=== PATIENT | female | born 1990 | race Caucasian/White ===

== ENCOUNTER 2016-09-04 01:05 | Emergency (ER) | payer OTHER ==
[~2016-09-04] VITALS: Ht 162.6 cm; Wt 109.1 kg
[~2016-09-04 01:05] MED LIST: ALBU8.5H2 INHALATION; BECL8.7A6 INHALATION; GABA-500 PO; IBUP-1827 PO
[2016-09-04 01:15] VITALS: BP 119/83; PULSE 79; RESP 16; O2SAT 97
--- NOTE | 2016-09-04 01:21 | ED.REPORT ---
HPI- Female Date of Service Sep 04, 2016 ED Provider: Alka LopezO. A 26 year old female at 9 weeks with a history of ovarian cyst, asthma, GERD, and depression presents to the ED with vaginal bleeding onset 25 minutes prior to arrival. She has soaked through a pad since onset. The patient also reports lower abdominal cramping. The patient denies recent sexual intercourse or other symptoms. Nursing Notes Stated Complaint: 9 WKS BLEEDING Chief Complaint: Female Abdominal Pain Nursing Notes Reviewed: Yes Allergies: Coded Allergies: budesonide (Verified Allergy, Unknown, 06/20/16) Scheduled Albuterol HFA (Proair HFA) 8.5 Gm Hfa.aer.ad 2 PUFFS INHALATION Q4H Beclomethasone Dipropionate (Qvar) 8.7 Gm Aer.w.adap 2 PUFF INHALATION BID Scheduled PRN Gabapentin (Gabapentin) 100 Mg Capsule 100 MG PO PRN . Ibuprofen (Ibuprofen) 600 Mg Tablet 600 MG PO QID PRN PRN For Pain General Time Seen by MD: 01:20 Chief Complaint Vaginal bleeding... (Moderate) Hx Obtained From: Patient Arrived By: Walk-in Sudden in Onset?: Yes Onset Occurred: 16 - 30 minutes ago Symptom Duration: Since onset Location: : Abdomen lower Quality: Cramping Severity: Current: Moderate Severity: Maximum: Moderate Associated with: Reports: Abdominal pain, Denies: Fever, Vomiting : 2 RH Status / Blood Type: Rh Positive Pertinent Negative: Relieved by nothing Recent Healthcare: No recent doctor visit Past Medical History Past Medical History Ovarian Cysts Back pain Reports: Asthma, GERD Reports: Depression, Obesity Past Surgical History Melanoma Left jaw (no other treatment) Sinus surgery Left foot Smoking History Never Smoker Social History Alcohol Use: Denies alcohol use Drug Use: Denies drug use Ambulatory Status Independent Review of Systems Constitutional: Denies: Fever GI: Reports: Abdominal pain (Lower, cramping), Denies: Diarrhea, Vomiting Female: Reports: Vaginal bleeding - abnl (During ) Complete sys rev & neg: except as marked. Respiratory: Denies: Non-productive cough, Shortness of breath Physical Exam Initial Vital Signs Vital Signs (First) Date Time Temp Pulse Resp B/P Pulse Ox O2 Delivery O2 Flow Rate FiO2 09/04/16 01:15 36.4 79 16 119/83 97 Room Air Initial VS: Reviewed Head / Eyes: Atraumatic, Normocephalic ENT: Conjunctiva normal, No scleral icterus Neck: Supple, Full range of motion Respiratory: Breath sounds normal, Clear to auscultation, No respiratory distress Cardiovascular: Regular rate & rhythm, Heart sounds normal Skin: Warm, Dry, No cyanosis Neurologic: Alert, Oriented, Nonfocal Psychiatric: Mood/affect normal, Behavior normal, Normal thought content Female Genitourinary: [employer] Sales [employer] present, Atraumatic, No bleeding, No cervical motion tend, Os closed, No adnexal tenderness Interpretation & Diagnostics Bedside US performed by ED physician at 01:29: Normal intrauterine with heart tones of 150bpm URINE DIPSTICK: 1.015 sp gravity 6 pH Trace Leukocytes Trace Protein Normal Glucose Normal Urobilinogen ~ 250 Angelito/ml Blood Otherwise Negative URINE : Positive Lab Results Interpretation Result Diagram: 09/04/16 0125 Test 09/04/16 01:25 09/04/16 02:00 White Blood Count 14.3th/mm3 (3.8-10.1) Red Blood Count 4.43mil/mm3 (3.90-5.20) Hemoglobin 13.1g/dL (12.0-15.6) Hematocrit 38.9% (35.0-46.0) Mean Corpuscular Volume 87.8fL (81-100) Mean Corpuscular Hemoglobin 29.6pg (27.0-35.0) Mean Corpuscular Hemoglobin Concent 33.7% (32.0-37.0) Red Cell Distribution Width 14.2% (12.3-15.4) Platelet Count 333bil/L (150-400) HCG Beta Subunit [id number]/mL Hold Farley Top Tube Received (Received) Urine Color Yellow (YELLOW) Urine Appearance Clear (CLEAR,HAZY) Urine pH 6.0 (5.0-8.0) Urine Specific [place] 1.020 (1.003-1.035) Urine Protein Negativemg/dL (NEG,TRACE) Urine Glucose (UA) Negativemg/dL (NEGATIVE) Urine Ketones Negativemg/dL (NEGATIVE) Urine Occult Blood Moderate (NEGATIVE) Urine Nitrite Negative (NEGATIVE) Urine Bilirubin Negative (NEGATIVE) Urine Urobilinogen Normalmg/dL (NORMAL) Urine Leukocyte Esterase Trace (NEGATIVE) Urine RBC 11-50/hpf (0-2) Urine WBC 0-5/hpf (0-5) Urine Epithelial Cells Few/hpf (NONE-MOD) Urine Crystals None seen (NONE SEEN) Urine Bacteria Few/hpf (NONE-FEW) Urine Hyaline Casts None/lpf (NONE) Urine Granular Casts None seen (NONE SEEN) Urine Waxy Casts None seen (NONE SEEN) Urine Red Blood Cell Casts None seen (NONE SEEN) Urine White Blood Cell Casts None seen (NONE SEEN) Urine Mucus None seen (None Seen) Urine Trichomonas None seen (NONE SEEN) Urine Yeast None (NONE SEEN) Urinalysis Comment None Urine Culture Reflexed Indicated Hold Urine Received (Received) Re-Eval/Medical Decision Med Decision/Clinical Course Bedside ultrasound shows an intrauterine with a heartbeat of about 150. No evidence of an ectopic. I cannot appreciate any free fluid in her abdomen. Cervical os was closed. No cervical motion tenderness. No adnexal tenderness. She is hemodynamically stable with no active bleeding. No signs of labor. Symptoms and signs are consistent with a threatened . She will be discharged home with a short course of opiates for pain. Recommend diphenhydramine for nausea. Follow-up with her pen rider. Routine opiate and spontaneous miscarriage instructions given Source of Hx: Old records Re-Evaluation/Progress : Time of Eval: 01:55 Patient Status: Condition improved Re-Evaluation/Progress Note: Discussed with patient bedside US and lab results, diagnosis, and plan for discharge. Follow-up and return to the ER instructions given. Patient agrees with plan for care and all questions were addressed. Counseled Regarding: Diagnosis, Lab results, Need for follow-up, When/why to return to ED Discharge & Departure Shift Change Sign-Out Response to Therapy: Improved Impression: Primary Impression: Threatened Disposition: Home Discharge Condition All VS Reviewed: Yes Condition: Improved Patient Instructions: Threatened Miscarriage (ED) Additional Instructions: Contact your pen rider tomorrow morning for follow-up. Tell the office you were seen for vaginal bleeding. Pelvic rest. Take 1-2 [place] every 6 hours as needed for the cramping. Take [id number] Benadryl as directed for any nausea that may ensue. Do not drive or drink alcohol or consume acetaminophen while taking the [place]. Return to the ED with any new problems or any worsening symptoms. Your ultrasound was reassuring. Your Rh is positive. The cause of bleeding is uncertain. Repeat the aftercare instructions on threatened given. Return if any problems or any worsening symptoms. Referrals: Diane Bae MD (PCP) [facility] Attestation Portions of this note were transcribed by Gaviota So. I, Dr. Navarro, personally performed the history, physical exam, and medical decision-making; I reviewed and confirmed the accuracy of the information in the transcribed note. Signed by: Bernardo Hsu, 09/04/2016, 03:05 copies to: Diane Bae MD, Todd P DO Sep 04, 2016 01:21 GAVIOTA SO Sep 04, 2016 01:32
[2016-09-04 01:37] LABS: Mean Corpuscular Hemoglobin 29.6 pg (27.0-35.0); Mean Corpuscular Volume 87.8 fL (81-100)
[2016-09-04] MEDS ORDERED: _HYDROcodone/APAP 5-325 mg Tablet PO PRN (02:20)
[2016-09-04 02:34] LABS: APPEARANCE,URINE CLEAR (CLEAR,HAZY); COLOR,URINE YELLOW (YELLOW)
[2016-09-04 02:35] LABS: OCCULT BLOOD,URINE MODERATE (NEGATIVE); UROBILINOGEN,URINE NORMAL (NORMAL)
== END 2016-09-04 02:56 | disposition home or self-care (01) ==
LOC: SED 01:05
DX: O20.0 Threatened abortion (principal); J45.909 Unspecified asthma, uncomplicated; K21.9 Gastro-esophageal reflux disease without esophagitis; Z3A.09 9 weeks gestation of pregnancy; Z88.8 Allergy status to other drugs, medicaments and biological substances